=== PATIENT | female | born 1950 | race Two or more races ===

== ENCOUNTER 2016-11-11 11:28 | Day surgery (SDC) | payer OTHER ==
[2016-11-11] VITALS (7 sets, daily range): BP systolic 144–199; BP diastolic 67–103; PULSE 54–78; RESP 16–31; Ht 157.5 cm; Wt 70.0 kg
[~2016-11-11] VITALS: Ht 157.5 cm; Wt 70.0 kg
[~2016-11-11 11:28] MED LIST: ROPIVACAINE 0.5 % 30 ML VIAL ONE
--- NOTE | 2016-11-11 12:36 | HPN ---
Date/Time of Note Date/Time of Note DATE: 11/11/16 TIME: 12:35 Interval H&P Admission Note Pt. seen H&P reviewed: No system changes ALYSSA LINDO MD Nov 11, 2016 12:36
[2016-11-11] MEDS ORDERED: THROMBIN 5000 UNIT VIAL ONE (12:42)
[2016-11-11] MEDS ORDERED: LIDOCAINE 1% (MPF) 30 ML INJ ONE (12:42)
[2016-11-11] MEDS ORDERED: HEPARIN 1000 UNITS/ML 10 ML INJ ONE (12:42)
[2016-11-11] MEDS ORDERED: GELATIN SIZE 100 SPONGE ONE (12:42)
[2016-11-11] MEDS ORDERED: ATOR80TA75 PO (12:53)
[2016-11-11] MEDS ORDERED: DOCU-159 PO (12:54)
[2016-11-11] MEDS ORDERED: NIFE60TA7 PO (12:55)
[2016-11-11] MEDS ORDERED: CLON-379 PO (12:55)
[2016-11-11] MEDS ORDERED: ASPI-664 PO (12:56)
[2016-11-11] MEDS ORDERED: CALC667C PO (12:56)
[2016-11-11] MEDS ORDERED: HEPARIN 1000 UNITS/ML 10 ML INJ IRR ONE (13:00)
[2016-11-11] MEDS ORDERED: FENTAnyl 50 MCG/ML VIAL ONE (13:12)
[2016-11-11] MEDS ORDERED: LIDOCAINE 2%/EPI 30 ML INJ ONE (13:12)
[2016-11-11] MEDS ORDERED: CEFAZOLIN 1 GM INJ ONE (13:50)
--- NOTE | 2016-11-11 13:50 | RADRPT ---
PROCEDURE: XR Chest. CLINICAL INDICATION: Preop TECHNIQUE: An AP view of the chest was obtained. COMPARISON: None. FINDINGS: There is a right chest Perma-Cath with tip in the mid SVC. There is mild prominence of the central pulmonary vascular markings. No pleural effusion or pneumo thorax is seen. The cardiomediastinal silhouette is mildly enlarged . Calcifications are seen with in the aortic arch. Calcifications are seen within the aortic arch. The osseous structures demonstr ate senescent changes. IMPRESSION: 1. No radiographic evidence of acute cardiopulmonary abnormality. 2. Mild cardiomegaly and aortic atherosclerosis. 3. Right chest Perma-Cath with tip in the mid SVC. RPTAT: HH .Mikaela Rivera MD, MD Date Time Electronically viewed and signed by .Mikaela Rivera MD, on 11/11/2016 13:49 .G/
[2016-11-11] MEDS ORDERED: ONDANSETRON 4 MG INJ IV PRN (14:00)
[2016-11-11] MEDS ORDERED: hydrALAzine 20 MG INJ IV PRN (14:00)
[2016-11-11] MEDS ORDERED: FENTAnyl 50 MCG/ML VIAL IV PRN ×2 (14:00)
[2016-11-11] MEDS ORDERED: DIPHENHYDRAMINE 50 MG INJ IV PRN (14:00)
[2016-11-11] MEDS ORDERED: MEPERIDINE 25 MG INJ IV PRN (14:00)
--- NOTE | 2016-11-11 14:38 | SIPON ---
Date/Time of Note Date/Time of Note DATE: 11/11/16 TIME: 14:37 Operative Report Preoperative Diagnosis ESRD Postoperative Diagnosis same Operation/Procedure Performed L arm brachiocephalic AVF creation Surgeon: ALYSSA LINDO MD Anesthesia Type: other Estimated Blood Loss: minimal Transfusion Required: no Specimen: none Grafts/Implants: none Complications: no ALYSSA LINDO MD Nov 11, 2016 14:38
--- NOTE | 2016-11-11 17:12 | RADRPT ---
Vent Rate: 58 bpm RR Interval: 0 msec AR Interval: 134 msec QRS Duration: 90 msec QT Interval: 460 msec QTC Interval: 451 msec P-R-T [place]: 46 - -23 - 163 degrees Sinus bradycardia Anterior infarct , age undetermined ST amp; T wave abnormality, consider inferolateral ischemia Abnormal ECG Electronically Signed By: Hiren Lamb [id number]
--- NOTE | 2016-11-12 04:25 | OPR ---
DATE OF OPERATION: 11/11/2016 PREOPERATIVE DIAGNOSIS: End-stage renal disease. POSTOPERATIVE DIAGNOSIS: End-stage renal disease. OPERATION PERFORMED: Creation of left brachiocephalic AV fistula. SURGEON: Manjinder Candelaria MD ANESTHESIA: Scalene block anesthesia. ESTIMATED BLOOD LOSS: Minimal. COMPLICATIONS: No intraprocedural complications. INDICATIONS: A 66-year-old woman with diabetes, hypertension, end-stage renal disease. She is on dialysis via PermCath. I brought her in today to place a left arm AV fistula. OPERATIVE PROCEDURE: Patient was brought to the operating room, placed on table in supine position. After induction of block anesthesia, left arm was prepped and draped in usual sterile fashion. I used ultrasound to identify the cephalic vein and it was a good vein from the elbow up to the shoulder, patent and good caliber. I then marked it on the skin. I then made an incision across the antecubital crease. I carefully dissected out the cephalic vein at the elbow and traced it down to where it divided and ligated each of the side branches with surgical clips and divided them. I then cut the septum between the branches creating a [place] at the end of the vein. I then cut the connective tissue overlying the brachial artery pulse and dissected out the brachial artery at the elbow. I then clamped it proximally and distally, made an 8 mm long anterior arteriotomy, and anastomosed the end of the cephalic vein to the side of brachial artery using 6-0 Prolene suture in a running standard vascular surgical fashion. I removed the clamps, there was a good thrill, and there was good hemostasis. I closed the skin incision in 2 layers using an inner layer of 3-0 Vicryl and an outer layer of 4-0 Monocryl subcuticular suture. Sterile dressing was applied. Patient was transferred to recovery room in stable condition. She tolerated the procedure well without complications. Dictated By: Manjinder Candelaria MD /brenda/[email or web address] /Document#: [id number]
== END 2016-11-11 16:10 | disposition home or self-care (01) ==
LOC: SDS 11:28
PROVIDERS: ATTEND Surgery Vascular Surgery
DX: I12.0 Hypertensive chronic kidney disease with stage 5 chronic kidney disease or end stage renal disease (principal); N18.6 End stage renal disease; E11.9 Type 2 diabetes mellitus without complications; E66.9 Obesity, unspecified; Z68.28 Body mass index [BMI] 28.0-28.9, adult
CPT/HCPCS: 36821; 71010; 82962; 84132; 93005; J0360; J0690; J1644; J2795; J3010; Z7512; Z7610; C1725